=== PATIENT | female | born 1955 | race African-American/Black ===

== ENCOUNTER 2020-12-01 01:05 | Day surgery (SDC) | payer BC, SELFPAY ==
[2020-11-29 12:46] VITALS: BMI 26.5
--- NOTE | 2020-12-01 10:43 | P.PNAN_ITS ---
Anes - Initial Pre Proc Eval Procedure: Operation Date: 12/01/20 12:00 Proposed Procedures p Excisional Biopsy Right Axillary Mass - Rochelle Mccullough MD Date/Time: 12/01/20 10:43 Surgeon: Rochelle Mccullough MD Pre Op Diagnosis: Right Axillary Mass 2x2 Patient Data Age: 65 Gender: F Height: 1.57 m Weight: 65.9 kg Allergies Allergy/AdvReac Type Severity Reaction Status Date / Time penicillin G Allergy Severe Unconscious Verified 11/29/20 13:02 [From Bicillin L-A] Home Medications Medication Instructions Recorded Confirmed Type carvedilol 6.25 mg tablet 6.25 mg PO Q12H #180 tablet 10/28/20 11/29/20 Rx Patient hx anesthesia problems: none Family hx anesthesia problems: none Results Review: All pre-operative results and documents have been reviewed as part of the pre-operative evaluation. PENDING SALE TO [facility] Family History Family History Father Family history of lung cancer Patient's father is Mother Patient's mother is Unknown Hypertension Social History Social History Smoking status: Never smoker Second hand tobacco smoke exposure: No Alcohol intake: current Living arrangements: with family Spiritual care concerns: No Anes - Eval Final PreProcedure Day of Procedure 12/01/20 10:43 Patient weight: overweight Heart: regular rate and rhythm Lungs: clear to auscultation Airway: Mallampati scale class II Neurological: alert and oriented Last oral intake: >/= 8 hours ASA classification: II Emergent: no Anesthetic plan: proceed Anesthesia type and monitoring: general GIVS and standard monitoring Results Review: All pre-operative results and documents have been reviewed as part of the pre-operative evaluation. Informed Consent: The patient's anesthetic plan and its attendant risks and benefits were discussed with the patient/family/POA. Questions were solicited and answers provided to the satisfaction of the patient/family/POA.
--- NOTE | 2020-12-01 10:48 | WPDHPUPDATE1 ---
History and Physical Update Update Date/Time: 12/01/20 10:48 History and Physical has been reviewed, including an updated exam of the patient. There are NO changes in the patient's condition. Risks, benefits, and alternatives have been discussed and questions answered. Patient agrees to proceed with procedure.
[2020-12-01 10:55] VITALS: BP 147/88; PULSE 75; RESP 18; TEMP 36.4; O2SAT 100; BMI 27.3
[2020-12-01] MEDS: LACTATED RINGERS 1,000 ML 30 ML IV CONT (11:17)
[2020-12-01] MEDS: LIDO 1%/EPINEPHRINE 1:100,000 50 ML VIAL 9 ML INFILTRATE (12:09)
[2020-12-01] MEDS: ceFAZolin 2 GM/D5W 50 ML 2 GM/50 ML BAG IVPB (12:09)
[2020-12-01 12:43] VITALS: BP 114/69; PULSE 64; RESP 10; O2SAT 94
--- NOTE | 2020-12-01 12:53 | W.PM.PROC2 ---
Procedure Note - Detailed Date of Procedure 12/01/20 Pre-op Diagnosis Right Axillary Mass 2x2 Post-op Diagnosis other (cystic mass) Procedure Performed excisional biopsy right axillary cystic mass Surgeon Rochelle Mccullough MD Anesthesia MAC and local Indications 65-year-old female presenting with right axillary mass that has been slowly enlarging. Patient reports that the area has become more tender Findings right axillary cystic mass Description of Procedure The patient was taken to the operating room and placed in the supine position. After adequate induction of MAC anesthesia the patient was prepped and draped in the normal sterile fashion. A time-out was then done to verify the patient's identity, as as the procedure being performed. I began by localizing the area in the right axilla. Once the area was completely anesthetized, I made an incision over the mass. This was carried down through the dermis into the subcutaneous tissue. The mass was noted to be a cystic structure. Upon dissecting around the mass, a small perforation was noted. The mass was noted to contain sebaceous material. I was able to excise the mass in full and it will be sent to pathology for further review. Hemostasis was noted in the cavity. I then closed the subcutaneous tissue with 3-0 Vicryl suture. The skin was closed with 4-0 Monocryl subcuticular suture. Dermabond was then placed on the wound. The patient tolerated the procedure well and was alert and awake in the operating room postoperatively. She will be sent to the recovery room in stable condition. Estimated Blood Loss 5 Drains No Packing No Pathology yes Complications No immediate complications Condition stable Disposition PACU
[2020-12-01 13:10] VITALS: BP 120/65; PULSE 58; RESP 16; O2SAT 98
[2020-12-01 13:40] VITALS: BP 136/71; PULSE 55; RESP 16
== END 2020-12-01 14:05 | disposition home or self-care (01) ==
PROVIDERS: PCP Internal Medicine; Visit Provider Surgery
PROC: (CPT 11404; principal; 2020-12-01 12:00)
DX: L72.0 Epidermal cyst (principal)
CPT/HCPCS: 11404; 12032; 88304; J0690; J1100; J2250; J2405; J2704; J3010; J7120

== ENCOUNTER 2023-02-13 13:41 | Outpatient (CLI) | payer MEDICARE, SELFPAY ==
--- NOTE | 2023-02-13 14:29 | ECG_ITS ---
Measurements Intervals [place] Rate: 66 P: 50 WA: 187 QRS: 0 QRSD: 94 T: 30 QT: 376 QTc: 397 Interpretive Statements SINUS RHYTHM VOLTAGE CRITERIA FOR LVH BASELINE ARTIFACT- I, II, III, AVR, AVL, AVF BORDERLINE ECG NO PREVIOUS ECG AVAILABLE FOR COMPARISON Electronically Signed On 02-13-2023 15:06:36 CLARIFIER OPERATOR by Franco Mesa D.O.
[2023-02-13 15:39] LABS: Basophils Absolute Auto 0.1 K/mm3 (0.0-0.1); Basophils Percent Auto 1.2 % (0.2-1.2); Eosinophils Absolute Auto 0.4 K/mm3 (0-0.3); Eosinophils Percent Auto 4.6 % (0-4.4); Hematocrit 41.7 % (37.0-47.0); Hemoglobin 13.2 g/dL (12.0-15.0); Immature Granulocyte Absolute 0.02 K/mm3 (0.00-0.031); Immature Granulocyte Percent A 0.2 % (0-0.5); Lymphocytes Absolute Auto 3.86 K/mm3 (0.9-3.2); Lymphocytes Percent Auto 40.7 % (18.3-44.2); Mean Corpuscular HGB Conc 31.7 g/dl (32-36); Mean Corpuscular Hemoglobin 28.7 pg (26-34); Mean Corpuscular Volume 90.7 fl (80-100); Mean Platelet Volume 10.5 fl (7.4-10.4); Monocytes Absolute Auto 0.6 K/mm3 (0.1-0.6); Monocytes Percent Auto 5.8 % (2.6-8.5); Neutrophils Absolute Auto 4.5 K/mm3 (1.3-6.7); Neutrophils Percent Auto 47.5 % (45.5-73.1); Platelet Count Result 358 k/mm3 (150-375); Red Cell Distribution Width 13.6 % (11.5-14.5); White Blood Count 9.5 K/mm3 (4.5-10.0)
[2023-02-13 15:47] LABS: Albumin Level 4.8 g/dL (3.5-5.1); Anion Gap 11 mmol/L (8-16); Blood Urea Nitrogen 15 mg/dL (7-17); Carbon Dioxide 27 mmol/L (22-30); Chloride 102 mmol/L (98-107); Estimated Glomerular Filt Rate > 60; Glucose 86 mg/dL (65-110); Potassium 3.8 mmol/L (3.4-5.0); Sodium 140 mmol/L (137-145)
[2023-02-13 15:48] LABS: Urine Cotinine NEGATIVE
[2023-02-13 16:21] LABS: Hemoglobin A1C 4.6 % (<5.7)
== END 2023-02-13 13:42 | disposition home or self-care (01) ==
LOC: ANHSURGERY 13:44
PROVIDERS: PCP Internal Medicine; Visit Provider Orthopaedic Surgery
DX: M17.11 Unilateral primary osteoarthritis, right knee (principal); Z01.818 Encounter for other preprocedural examination
CPT/HCPCS: 80048; 80307; 82040; 83036; 85025; 87081; 93005

== ENCOUNTER 2023-03-05 01:29 | Day surgery (SDC) | payer MEDICARE, SELFPAY ==
--- NOTE | 2023-02-13 13:48 | PC.NURSE ---
Addendum entered by Kristen Pruett RN 02/14/23 14:00: PT INFORMED TO TAKE FELODIPINE AM OF SURGERY - UNDERSTANDING VOICED Addendum entered by Kristen Pruett RN 02/14/23 11:54: PT INFORMED NOT TO TAKE LOTREL AM OF SURGERY - UNDERSTANDING VOICED Original Note: PRE-OP INSTRUCTIONS, PLEASE READ CAREFULLY Report to the Outpatient Waiting Room, entrance under the green pavilion located off [facility], at time _0600_ on date _03/05/23_. Planned Procedure Time: _0730_. PACK A SMALL OVERNIGHT BAG AND LEAVE IT IN THE CAR ALONG WITH YOUR WALKER Time changes happen often and if your time is changed the preop area will call you the afternoon before. - You and your visitor will be asked to self-screen and do not enter if you have any COVID symptoms. - A mask is optional within the hospital at this time. -VISITING HOURS 8AM-8PM Patients may have clear liquids (water, carbonated beverages, clear teas, apple juice) until 3 hours prior to surgery (0430 AM) with a maximum of 20 ounces. - No food from midnight until time of surgery Take the following medications with a SIP of water the morning of surgery: _LOTREL_ DO NOT STOP ANY OF YOUR OTHER PRESCRIPTION MEDICATIONS PRIOR TO SURGERY ?EXCEPT THE FOLLOWING Medications to discontinue per DR. STEEL - _ALEVE, COD LIVER OIL 7 DAYS PRIOR TO SURGERY, Date to take last dose 02/25/23 Medications to discontinue per ANESTHESIA - _MULTIVITAMIN 3 DAYS PRIOR TO SURGERY, Date to take last dose 03/01/23_ Please no make-up, nail yoruba, hairspray, perfume, deodorant, or body powder the day of surgery. No jewelry (including any body piercings) or valuables the day of surgery, leave them at home. Please take a shower or bath the night before, or the morning of, surgery with an antibacterial soap. Wear comfortable, loose fitting clothing. - Jewelry must be removed prior to entering the operating room. Rings and piercings that are not removed may be cut off. - The hospital will not accept responsibility for valuables. - Please leave all valuables, including medications, at home the day of surgery. If you are going home after surgery, a licensed explosives truck driver must drive you home. - NO public transportation without another adult if you receive anesthesia. - We recommend that an adult stay with you for 24 hours following discharge. - We also recommend that you do not drive, make important decision, drink alcoholic beverages, or take any drugs that were not prescribed by your health care provider for at least 24 hours after your discharge time. Follow any additional instructions given to you from your surgeon. TOTAL JOINT CLASS 02/14/23 @ [address] [place] [address] ENTRANCE 2, LOWER LEVEL If you or anyone in your household have experienced Covid symptoms in the past week, please notify your surgeon or the nurse liaison at the phone number below for possible testing. Instructions given to _PATIENT_and asked if any additional questions and then verbalized understanding. Patient advised to call surgeon office or pre surgery nurse liaison [phone] if any additional questions.
[2023-02-13 14:13] VITALS: BP 154/86; PULSE 80; RESP 18; TEMP 36.7; O2SAT 99; BMI 26.9
--- NOTE | 2023-02-14 13:59 | PC.NURSE ---
PT CALLED IN WITH CHANGE OF BP MED - MED LIST UP DATED AND PRE-OP INSTRUCTIONS GIVEN REGARDING BP MED CHANGE
--- NOTE | 2023-03-02 08:12 | PM.IMHP ---
H&P: HPI History of Present Illness Date/Time: 03/02/23 08:12 Chief Complaint: Right knee DJD Narrative: 67-year-old female who presents today for a right total arthroplasty. Patient has severe medial compartment osteoarthritis right knee. She has been treating this nonsurgically for last Five years. She had cortisone injection in August of last year which helped for about 2 months. She has been taking [id number] anti-inflammatories. patient feels at this point her pain is significant enough on a daily basis and it is affecting her daily lifestyle that she would like to proceed with total knee arthroplasty at this point. Review of Systems Review of Systems: All systems reviewed & are unremarkable except as noted in HPI and below PMFSH Surgical History Surgical History H/O excision of mass 12/01/20 excisional biopsy right axillary cystic mass Family History Family History Father Family history of lung cancer Patient's father is Mother Patient's mother is Unknown Hypertension Social History Social History Smoking status: Never smoker Second hand tobacco smoke exposure: No Additional smoking assessment comments: PT DENIES ALL FORMS OF TOBACCO USE Alcohol intake: current Drinks per week: 3 Substance use: never Substance use type: does not use Lack of Transportation: No Lack of Food: Never True Current Housing: I Have Housing Concerned About Future Housing: No Difficulty Paying Gas/Electric Bills: No Difficulty Paying for Meds: No Currently Unemployed: No Education: Bachelor's Degree Difficulty w/ Childcare or Family Care: No Living arrangements: with family Spiritual care concerns: No Meds Home Medications and Allergies Home Medications Medication Instructions Recorded Confirmed Type multivitamin 1 tablet PO DAILY 12/21/21 02/13/23 History acetaminophen 500 mg tablet 1,000 mg PO Q6H PRN Pain 02/13/23 02/13/23 History cod liver oil 1 cap DAILY 02/13/23 02/13/23 History naproxen sodium 220 mg tablet 220 mg PO BID PRN Pain 02/13/23 02/13/23 History (Aleve) soy isoflavone-black cohosh 1 cap PO DAILY 02/13/23 02/13/23 History root-magnolia bark 155 mg capsule (Estroven) felodipine 10 mg tablet,extended 10 mg PO DAILY 02/14/23 02/14/23 History release 24 hr Allergies Allergy/AdvReac Type Severity Reaction Status Date / Time penicillin G Allergy Severe Unconscious Verified 02/13/23 14:01 [From Bicillin L-A] Exam Narrative: 67-year-old female alert pleasant. She is 5 ft 1 and 153 lb. Range of motion right knee is from 0-125 degrees. Moderate effusion. Normal stability in the knee. Hip range of motion is full without discomfort negative Stinchfield maneuver. Normal quad strength. Moderate tenderness over the medial joint line to palpation. Mild patellofemoral grind. 2+ dorsalis pedis and absent posterior tibial pulse. Normal sensation. No edema in lower extremities. Resp: Auscultation: clear to auscultation bilaterally Cardio: Rate: regular rate Rhythm: regular rhythm Assessment and Plan Assessment and plan (1) Right knee DJD: Code(s): M17.11 - Unilateral primary osteoarthritis, right knee Status: Acute Plan 67-year-old female who has severe medial compartment osteoarthritis the right knee with continued symptoms. She is ready to proceed with total knee arthroplasty at this point. Surgical procedure as well as the risks and complications were discussed in detail all questions were answered and we will proceed. Patient will avoid any anti-inflammatories 1 week prior surgery. She will see her primary care doctor for pre-surgical clearance. Her nasal swab was negative. Chem panel was all within
[2023-03-05] VITALS (15 sets, daily range): BP systolic 109–150; BP diastolic 58–80; PULSE 74–100; RESP 12–20; TEMP 36.4–37.3; O2SAT 94–100
--- NOTE | ~2023-03-05 | XR_ITS ---
EXAMINATION: [id number] DATE: 03/05/2023 11:56 INDICATION: Postoperative evaluation following right total knee arthroplasty. TECHNIQUE: Anteroposterior and lateral views of the right knee were obtained. COMPARISON: None. FINDINGS: Right total knee arthroplasty with patellar resurfacing appears well seated and in near anatomic alig nment. No fractures identified. Expected postoperative subcutaneous and intra-articular gas. IMPRESSION: 1. Right total knee arthroplasty, negative for postoperative purposes. Reviewed, dictated and finalized at location A. [facility]
[2023-03-05] MEDS: ACETAMINOPHEN 500 MG TABLET 1000 MG PO (06:23)
[2023-03-05] MEDS: VANCOMYCIN 1,000 MG/NS 250 ML BAG 250 MG IVPB (06:40)
[2023-03-05] MEDS: LACTATED RINGERS 1,000 ML 30 ML IV CONT (06:49)
[2023-03-05] MEDS: TRANEXAMIC ACID 1,000MG/ISO100 1,000 MG/100 ML BAG 200 MG IVPB (07:05)
--- NOTE | 2023-03-05 07:09 | WPDHPUPDATE1 ---
History and Physical Update Update Date/Time: 03/05/23 07:09 History and Physical has been reviewed, including an updated exam of the patient. There are NO changes in the patient's condition. Risks, benefits, and alternatives have been discussed and questions answered. Patient agrees to proceed with procedure.
--- NOTE | 2023-03-05 07:15 | WPDANESEPPF ---
Anes - Initial Pre Proc Eval Procedure: Operation Date: 03/05/23 07:30 Proposed Procedures p Right Total Knee Arthroplasty - Patrick Jerome MD Date/Time: 03/05/23 07:15 Surgeon: Patrick Jerome MD Pre Op Diagnosis: OA right knee Patient Data Age: 67 Gender: F Height: 1.62 m Weight: 70.7 kg Last Vital Signs Temp 97.6 F 03/05/23 06:51 Pulse 74 03/05/23 06:51 Resp 16 03/05/23 06:51 BP 150/73 H 03/05/23 06:51 Pulse Ox 100 03/05/23 06:51 O2 Del Method Room Air 03/05/23 06:51 Allergies Allergy/AdvReac Type Severity Reaction Status Date / Time penicillin G Allergy Severe Unconscious Verified 03/05/23 06:21 [From Bicillin L-A] Home Medications Medication Instructions Recorded Confirmed Type multivitamin 1 tablet PO DAILY 12/21/21 03/05/23 History acetaminophen 500 mg tablet 1,000 mg PO Q6H PRN Pain 02/13/23 03/05/23 History cod liver oil 1 cap DAILY 02/13/23 03/05/23 History naproxen sodium 220 mg tablet 220 mg PO BID PRN Pain 02/13/23 03/05/23 History (Aleve) soy isoflavone-black cohosh 1 cap PO DAILY 02/13/23 03/05/23 History root-magnolia bark 155 mg capsule (Estroven) felodipine 10 mg tablet,extended 10 mg PO DAILY 02/14/23 03/05/23 History release 24 hr Patient hx anesthesia problems: none Family hx anesthesia problems: none Results Review: All pre-operative results and documents have been reviewed as part of the pre-operative evaluation. [facility] Surgical History Surgical History H/O excision of mass 12/01/20 excisional biopsy right axillary cystic mass Family History Family History Father Family history of lung cancer Patient's father is Mother Patient's mother is Unknown Hypertension Social History Social History Smoking status: Never smoker Second hand tobacco smoke exposure: No Additional smoking assessment comments: PT DENIES ALL FORMS OF TOBACCO USE Alcohol intake: current Drinks per week: 3 Substance use: never Substance use type: does not use Lack of Transportation: No Lack of Food: Never True Current Housing: I Have Housing Concerned About Future Housing: No Difficulty Paying Gas/Electric Bills: No Difficulty Paying for Meds: No Currently Unemployed: No Education: Bachelor's Degree Difficulty w/ Childcare or Family Care: No Living arrangements: with family Spiritual care concerns: No Anes - Eval Final PreProcedure Day of Procedure 03/05/23 07:15 Patient weight: normal Heart: regular rate and rhythm Lungs: clear to auscultation Airway: Mallampati scale class II Neurological: alert and oriented Last oral intake: >/= 8 hours ASA classification: II Emergent: no Anesthetic plan: proceed Anesthesia type and monitoring: general ETT and standard monitoring Results Review: All pre-operative results and documents have been reviewed as part of the pre-operative evaluation. Informed Consent: The patient's anesthetic plan and its attendant risks and benefits were discussed with the patient/family/POA. Questions were solicited and answers provided to the satisfaction of the patient/family/POA.
[2023-03-05] MEDS: ceFAZolin SODIUM 1 GM VIAL 3 GM (07:30)
[2023-03-05] MEDS: ceFAZolin 2 GM/D5W 50 ML 2 GM/50 ML BAG IVPB (07:30)
[2023-03-05] MEDS: GENTAMICIN BONE CEMENT REFOBACIN 2 EACH TOPICAL (09:49)
[2023-03-05] MEDS: TRANEXAMIC ACID 1,000 MG/10 ML AMPUL 1000 MG IV PUSH (10:03)
[2023-03-05] MEDS: ceFAZolin SODIUM 1 GM VIAL 2 GM IV PUSH (10:03)
[2023-03-05] MEDS: KETOROLAC 15 MG/ML VIAL (*BKC) IV PUSH ×2 (10:03→18:09)
--- NOTE | 2023-03-05 10:40 | SUR.OPER ---
given DEPUY CMW 2 GENTAMICIN BONE CEMENT 2 (20G) 10:40 TO STERILE FIELD (DOES NOT SCAN FOR MAR).
--- NOTE | 2023-03-05 12:11 | W.PM.PROC2 ---
Procedure Note - Detailed Date of Procedure 03/05/23 Pre-op Diagnosis OA right knee Post-op Diagnosis Same Procedure Performed Right total knee arthroplasty Surgeon Patrick Jerome MD Anesthesia General Description of Procedure Patient was brought to the operating room and general anesthesia was administered. She received 2 g of Ancef weight based vancomycin 1 g of tranexamic acid preoperatively the right knee was prepped draped usual fashion. Was exsanguinated tourniquet elevated to 250 mmHg. A 7 in longitudinal midline incision was used and a vastus medialis splitting approach utilized splitting the vastus medialis at the level of the superior pole of patella. Infrapatellar and suprapatellar fat pads were excised the quadriceps synovectomy carried out. The patella had only mild chondromalacia central medially otherwise had normal thickness of articular cartilage. Small osteophytes were trimmed. I thought it was most appropriate for non resurfacing. A guide dewey was inserted on femoral canal after aspiration of canal contents using the 5 degree valgus cutting bushing 9 mm of bone removed the distal femur. Next the tibial plateau was cut making a skim cut off the medial tibial plateau. This was made perpendicular to the axis of the tibia. Meniscal remnants were excised the PCL recessed. Flexion gap was a snug 8 medially and 12 laterally. The sizing guide was applied the distal femur set at 4? of external rotation which matched [place] line. AP and chamfer cuts were made through the size 60 cutting block and unfortunately the 60 was a little too wide. It did rest in the anterior cortex nicely. On trialing we could see that were still too tight in flexion to accept the size 10 CR poly and tray in flexion. Additional 2 mm of bone removed from the tibial plateau. Tibia was sized to a size 63 vanguard placed at proper rotation and punched. The 10 was a little bit loose in flexion the 11 seemed appropriate. The knee came out to full extension with negative bounce with 1 mm medial opening 3 lateral opening. We had removed the medial tibial osteophyte but did not strip any medial capsule from the tibia. I felt that the 60 was a little bit too wide and comfortable with the rotation of the femur we downsized to the size 57.5 femur by flexing at about 2 or 3? and pinning it into this position AP and chamfer cuts were revised and the 57.5 fit nicely. Posterior femoral osteophytes removed this time on trialing again with the 11 knee came out to full extension 1 mm medial 3 lateral opening appropriate stability to anterior roofing applicator all positions at 90? opening up 1-2 laterally and 1 medially. [place] flexion was to 1 35. Patellar tracking seemed appropriate. Lug holes were drilled in the femur. We had put the tourniquet down at 90 minutes it was real of a at this time and step drill was used to make perforations in the distal femur and tibial plateau the bony surfaces thoroughly irrigated and dried. Two batches with gentamicin cement were used since we were out of the plane cement and we applied the cement to the 63 tibial component the 57.5 femoral component CR and applied the cement to the tibial plateau pressurized tibial component fully seated applied to the femur femoral component fully seated the knee brought into extension with a 5 and 112 insert for cement pressurization tourniquet released total tourniquet time 107 minutes. After cement hardening excess cement was sought for removed and hemostasis was achieved. We trialed and placed the 11 without difficulty. Range of motion stability patellar tracking seemed normal. Local anesthetic cocktail was injected and we proceeded the start close the arthrotomy in after placing a few stitches I checked the knee through range of motion and unfortunately the superior apex of the patella was catching on the lip of the trochlear rim of the femoral component coming from deep flexion through 120? of flexi
--- NOTE | 2023-03-05 13:05 | ADMGEN ---
This patient, Mira Prather, was admitted to 2 Medical Room 248-. Patient/family oriented to hospital policies and general routines including ID bracelet, bed and alarms, visiting hours, pain management, procedures, bathroom and other care routines, personal items, smoking policy, room service/diet, and visiting hours. Information on how to activate the Rapid Response Team has been discussed. Patient/Family are encouraged to report perceived risks to care and to ask questions if they do not understand what they are told or what they should do.
[2023-03-05] MEDS: SODIUM CHLORIDE 0.9% IV 1,000 ML 125 ML IV CONT (14:05)
[2023-03-05] MEDS: oxyCODONE HCL (*CRX) 5 MG TAB IR PO ×3 (14:05→21:04)
--- NOTE | 2023-03-05 14:05 | WPDCN ---
Assessment and Plan Assessment and plan (1) Arthritis of right knee: Code(s): M17.11 - Unilateral primary osteoarthritis, right knee Status: Acute Assessment and Plan: Postoperative day 0 status post right total knee arthroplasty. Wound care, pain control, and DVT prophylaxis deferred to Dr. Jerome. Check baseline labs in a.m. (2) Hypertension: Code(s): I10 - Essential (primary) hypertension Status: Acute Assessment and Plan: Blood pressures were reviewed and they have been stable postoperatively. Resume felodipine 10 mg daily and continue to monitor closely. Plan Thank you for allowing us to participate in this patient's care. Please do not hesitate to contact us with any questions. HPI Data of Consult Date/Time: 03/05/23 14:05 Requesting Physician: Patrick Jerome MD Consult Narrative Reason for consult: Medical management. Narrative: This is a very pleasant 67-year-old female with hypertension and osteoarthritis whom the hospitalist service has been consulted for help managing her medical conditions postoperatively. She has had longstanding pain in the right knee which is not been amenable to conservative outpatient treatment in the she elected for replacement. Her surgery was performed under general anesthesia with no immediate complications documented. Postoperatively she has had some nausea but is otherwise doing okay. Her pain is pretty well controlled. She denies postoperative fever, chills, sweats, chest pain, shortness the of breath, and vomiting. She also denies paresthesias, skin color, and temperature changes distal to the surgical site. Review of Systems Review of Systems: Twelve systems were reviewed. No recent cold or flu symptoms. No history of venous thromboembolism. Hypertension is well controlled on her medications. Except as documented, all other systems were reviewed and are negative. [facility] Past Medical History Medical History Hyperlipidemia Hypertension Osteoarthritis Surgical History Surgical History History of arthroplasty of right knee (03/05/23) History of excision of epidermal inclusion cyst (12/01/20) Right axilla. History of hysterectomy Family History Family History Father Family history of lung cancer Patient's father is Mother Patient's mother is Unknown Hypertension Social History Social History Social History: Surrogate medical decision maker: Guy Prather, spouse. Code status: Full code. Smoking status: Never smoker Second hand tobacco smoke exposure: No Alcohol intake: current Drinks per week: 1 Substance use: never Substance use type: does not use Do You Feel Safe in your Home?: Yes Lack of Transportation: No Lack of Food: Never True Current Housing: I Have Housing Concerned About Future Housing: No Difficulty Paying Gas/Electric Bills: No Difficulty Paying for Meds: No Currently Unemployed: No Education: Bachelor's Degree Difficulty w/ Childcare or Family Care: No Living arrangements: with family Spiritual care concerns: No Meds Home Medications and Allergies Home Medications Medication Instructions Recorded Confirmed Type multivitamin 1 tablet PO DAILY 12/21/21 03/05/23 History acetaminophen 500 mg tablet 1,000 mg PO Q6H PRN Pain 02/13/23 03/05/23 History cod liver oil 1 cap DAILY 02/13/23 03/05/23 History naproxen sodium 220 mg tablet 220 mg PO BID PRN Pain 02/13/23 03/05/23 History (Aleve) soy isoflavone-black cohosh 1 cap PO DAILY 02/13/23 03/05/23 History root-magnolia bark 155 mg capsule (Estroven) felodipine 10 mg tablet,extended 10 mg PO DAILY 02/14/23 03/05/23 History
[2023-03-05] MEDS: ceFAZolin 1 GM/NS 50 ML 1 GM/50 ML BAG IVPB (15:25)
[2023-03-05] MEDS: ACETAMINOPHEN 325 MG TABLET 650 MG PO ×2 (17:07→21:04)
[2023-03-05] MEDS: VANCOMYCIN 1,000 MG/NS 250 ML 1,000 MG/250 ML BAG 250 MG IVPB (18:10)
[2023-03-06 00:51] VITALS: BP 105/54; PULSE 82; RESP 20; TEMP 36.9; O2SAT 98
[2023-03-06] MEDS: KETOROLAC 15 MG/ML VIAL (*BKC) IV PUSH (00:53)
[2023-03-06] MEDS: ceFAZolin 1 GM/NS 50 ML 1 GM/50 ML BAG IVPB ×2 (00:53→07:43)
[2023-03-06] MEDS: ACETAMINOPHEN 325 MG TABLET 650 MG PO ×3 (00:58→08:06)
[2023-03-06] MEDS: oxyCODONE HCL (*CRX) 5 MG TAB IR PO ×3 (01:00→09:34)
[2023-03-06 05:10] VITALS: BP 112/66; PULSE 73; RESP 18; TEMP 36.5; O2SAT 95
[2023-03-06 05:51] LABS: Basophils Absolute Auto 0.1 K/mm3 (0.0-0.1); Basophils Percent Auto 0.4 % (0.2-1.2); Eosinophils Percent Auto 0.1 % (0-4.4); Hematocrit 36.4 % (37.0-47.0); Hemoglobin 11.5 g/dL (12.0-15.0); Immature Granulocyte Absolute 0.06 K/mm3 (0.00-0.031); Immature Granulocyte Percent A 0.4 % (0-0.5); Lymphocytes Absolute Auto 3.49 K/mm3 (0.9-3.2); Lymphocytes Percent Auto 25.9 % (18.3-44.2); Mean Corpuscular HGB Conc 31.6 g/dl (32-36); Mean Corpuscular Hemoglobin 28.5 pg (26-34); Mean Corpuscular Volume 90.3 fl (80-100); Monocytes Absolute Auto 1.1 K/mm3 (0.1-0.6); Monocytes Percent Auto 8.1 % (2.6-8.5); Neutrophils Absolute Auto 8.8 K/mm3 (1.3-6.7); Neutrophils Percent Auto 65.1 % (45.5-73.1); Platelet Count Result 258 k/mm3 (150-375); Red Blood Count 4.03 M/mm3 (4.2-5.4); Red Cell Distribution Width 13.6 % (11.5-14.5); White Blood Count 13.5 K/mm3 (4.5-10.0)
[2023-03-06 06:00] LABS: Anion Gap 8 mmol/L (8-16); Blood Urea Nitrogen 7 mg/dL (7-17); Carbon Dioxide 27 mmol/L (22-30); Chloride 105 mmol/L (98-107); Estimated CRCL calculation 76 ml/min; Estimated Glomerular Filt Rate > 60; Glucose 90 mg/dL (65-110); Potassium 3.3 mmol/L (3.4-5.0); Sodium 140 mmol/L (137-145)
[2023-03-06] MEDS: VANCOMYCIN 1,000 MG/NS 250 ML 1,000 MG/250 ML BAG 250 MG IVPB (06:06)
--- NOTE | 2023-03-06 07:21 | PM.PNORT ---
Progress Note: A&P Assessment and Plan (1) History of total right knee replacement: Code(s): Z96.651 - Presence of right artificial knee joint Status: Acute Plan Patient is ready for discharge home today see discharge plan and instructions she voiced understanding and agrees with the above plan. Subjective Subjective Date/Time Seen: 03/06/23 07:21 Interval history: And doing very well postop day 1 status post right total knee arthroplasty. Today we went over postop instructions at bedside as follows. DAISY STEEL M.D [facility], [place] [id number] [place] [address] POST-OPERATIVE DISCHARGE INSTRUCTIONS TOTAL KNEE ARTHROPLASTY 1. When resting, do not rest in the chair.When resting, lie on your back, with back flat on the couch or bed, with leg elevated above heart to minimize swelling. You may put a pillow under your head. . Significant swelling could indicate a blood clot and if this occurs call the office (or go to the ER) to have a venous ultrasound. Therefore, do not rest in a chair. 2. At least five times a day spend several minutes stretching your knee into flexion while sitting in the chair and also stretching your knee out straight The abilities to bend your knee fulling and straighten your knee fully are two most important knee functions to focus on during your recovery. 3. It is ok to sit in chair to eat, use the toilet and receive a guest and to do your stretching exercises, but, sitting in a chair will cause your leg to swell. Therefore, avoid additional time sitting in the chair. and don't rest in the chair. 4. Wound Care: Nursing will give you an additional Mepilex dressing at the time of discharge. Patient to remove the dressing and apply a new Mepilex dressing at home 7 days after surgery and leave the dressing on until seen in office. 5. May shower with a Mepilex dressing in place.The water will run off the dressing. 6. Unless you are told otherwise, you may put full weight on your operated leg. Use a walker for balance and practice walking as normally as you can, ideally for a few minutes every hour while you are awake. 7. I would advise against putting ice packs on your knee incision. Ice constricts blood flow which can impar healing of the knee incision. IMPORTANT: Remember not to sit in the chair for more than 30 minutes at a time. As a rule, during the first 14 days after surgery, only sit in the chair to work on the chair knee bending stretch exercise, for meals or for use of the restroom. Sitting in the chair promotes significant swelling in the knee and leg which will make your knee stiff and more painful and which simulates having a blood clot in the veins of the leg. If this type of significant diffuse swelling occurs, an ultrasound at the hospital will be necessary to rule out a blood clot. Be up walking around with the walker for a few minutes every hour while awake and then rest laying on your back on the couch or in bed with your leg elevated on cushions or pillows. Do not rest in the chair. The patient will be discharged home today she has no complaints doing well in therapy eating and slept well. States her pain is well controlled she is ready for discharge to home. Review of Systems Review of Systems: Ten point review of systems otherwise negative Exam Narrative: Vital signs stable afebrile neurovascularly intact wound clean and dry calves benign alert oriented x3. Normal mood and affect. Ambulating well with a walker. No significant postop complaints noted looks comfortable this morning. Ready for discharge home. Objective Data Vital Signs Vital Signs: Vital Signs - 24 hr 03/05/23 11:43 03/05/23 11:45 03/05/23 12:00 Temperature 36.6 C Pulse Rate 88 100 97 Respiratory Rate 14 12 16 Blood Pressure 112/67 123/72 109/67 Pulse Oximetry 98 94 96 Oxygen Delivery Simple Face Mask Room Air Na
--- NOTE | 2023-03-06 07:31 | PM.DS ---
DS: Admitting Diagnosis Discharge Date March 06, 2023 Admitting Diagnosis Advanced primary osteoarthritis right knee Discharge diagnosis same status post right total knee arthroplasty DS: Summary Hospital Course Hospital Course: The patient was admitted overnight after undergoing a right total knee arthroplasty on 03/05 2023. Postop day 1 the patient was doing well vital signs are stable she was afebrile neurovascular intact wound clean and dry calves benign alert oriented x3 normal mood and affect. Pain was well controlled she was able to get up and ambulate with a walker no postoperative complications or problems were noted. She was in good condition deemed stable for discharge to home. We went over the discharge instructions in detail she was advised to keep her leg elevated as much as possible on her back with her leg above her heart propped up except to get up every hour to ambulate and do her physical therapy exercises 4 to 5 times a day. She is not to sit in a chair for more than 30 minutes at a time except for meals other than that she should have her leg propped up on her back. She can resume her home medication. She will have outpatient physical therapy at our office for total knee protocol and do her exercises on her own daily. She can shower with the dressing in place removed the dressing in 1 week change it and follow-up with Dr. Prieto in 2 weeks. She will call the office immediately for any further problems difficulties or questions. Time Spent with Patient Time attestation: Total time spent providing and/or coordinating discharge services: Exam Narrative: Vital signs stable afebrile neurovascular intact wound clean and dry calves benign DS: Data Data Completed and Pending Labs on day of discharge: Labs from last 24 hours 03/06/23 03/05/23 05:24 06:36 WBC 13.5 H RBC 4.03 L Hgb 11.5 L Hct 36.4 L MCV 90.3 MCH 28.5 MCHC 31.6 L RDW 13.6 Plt Count 258 MPV 10.0 Immature Gran % (Auto) 0.4 Neut % (Auto) 65.1 Lymph % (Auto) 25.9 [place] % (Auto) 8.1 Eos % (Auto) 0.1 Baso % (Auto) 0.4 Lymph # (Auto) 3.49 H [place] # (Auto) 1.1 H Eos # (Auto) 0.0 Baso # (Auto) 0.1 Abs Immat Gran (auto) 0.06 H Absolute Neuts (auto) 8.8 H Absolute Nucleated RBC 0.0 Nucleated RBC % 0.0 Sodium 140 Potassium 3.3 L Chloride 105 Carbon Dioxide 27 Anion Gap 8 BUN 7 D Creatinine 0.60 L Estim Creat Clear Calc 76 Estimated GFR > 60 Glucose 90 Calcium 9.0 Magnesium 2.0 Antibody Screen Negative Procedures/Treatments: Right total knee arthroplasty Discharge Plan Discharge Patient Disposition: Home, Self-Care Discharge Instructions: DAISY STEEL M.D [facility], [place] [address] [address] POST-OPERATIVE DISCHARGE INSTRUCTIONS TOTAL KNEE ARTHROPLASTY 1. When resting, do not rest in the chair.When resting, lie on your back, with back flat on the couch or bed, with leg elevated above heart to minimize swelling. You may put a pillow under your head. . Significant swelling could indicate a blood clot and if this occurs call the office (or go to the ER) to have a venous ultrasound. Therefore, do not rest in a chair. 2. At least five times a day spend several minutes stretching your knee into flexion while sitting in the chair and also stretching your knee out straight The abilities to bend your knee fulling and straighten your knee fully are two most important knee functions to focus on during your recovery. 3. It is ok to sit in chair to eat, use the toilet and receive a guest and to do your stretching exercises, but, sitting in a chair will cause your leg to swell. Therefore, avoid additional time sitting in the chair. and don't rest in the chair. 4. Wound Care: Nursing will give you an additional Mepilex dressing at the time of discharge. Patient to remove the dressing and apply
[2023-03-06] MEDS: FELODIPINE 5 MG TAB CR 10 MG PO (08:05)
[2023-03-06] MEDS: CEFDINIR 300 MG CAPSULE PO (08:05)
[2023-03-06] MEDS: SENNA/DOCUSATE SODIUM TABLET 2 TAB PO (08:05)
[2023-03-06] MEDS: APIXABAN 2.5 MG TABLET PO (08:06)
[2023-03-06] MEDS: POTASSIUM CHLORIDE 20 MEQ ER TABLET PO (08:06)
[2023-03-06] MEDS: CELECOXIB 200 MG CAPSULE PO (08:14)
[2023-03-06 08:22] VITALS: RESP 18; O2SAT 95
--- NOTE | 2023-03-06 08:51 | P.PNAN_ITS ---
Anes - Prog Note Post-Op Date/Time: 03/06/23 08:51 Cardiovascular status: normal Respiratory status: normal Airway patency: baseline Mental status: baseline Post-Op hydration status: normal Vital Signs: Last Vital Signs Temp 36.5 C 03/06/23 05:10 Pulse 73 03/06/23 05:10 Resp 18 03/06/23 08:22 BP 112/66 03/06/23 05:10 Pulse Ox 95 03/06/23 08:22 O2 Del Method Room Air 03/06/23 08:22 O2 Flow Rate 2 03/05/23 12:53 Pain Score (VAS): 410 I/O: Intake & Output 03/05/23 03/06/23 03/06/23 23:59 07:59 15:59 Intake Total 490 640 Output Total 300 300 Balance 490 340 -300 Laboratory Tests 03/06/23 05:24 03/06/23 05:24 03/06/23 05:24 WBC 13.5 H RBC 4.03 L Hgb 11.5 L Hct 36.4 L MCV 90.3 MCH 28.5 MCHC 31.6 L RDW 13.6 Plt Count 258 MPV 10.0 Immature Gran % (Auto) 0.4 Neut % (Auto) 65.1 Lymph % (Auto) 25.9 [place] % (Auto) 8.1 Eos % (Auto) 0.1 Baso % (Auto) 0.4 Lymph # (Auto) 3.49 H [place] # (Auto) 1.1 H Eos # (Auto) 0.0 Baso # (Auto) 0.1 Abs Immat Gran (auto) 0.06 H Absolute Neuts (auto) 8.8 H Absolute Nucleated RBC 0.0 Nucleated RBC % 0.0 Sodium 140 Potassium 3.3 L Chloride 105 Carbon Dioxide 27 Anion Gap 8 BUN 7 D Creatinine 0.60 L Estim Creat Clear Calc 76 Estimated GFR > 60 Glucose 90 Calcium 9.0 Magnesium 2.0 Post-procedural complaints: none Patient Feedback: Patient satisfied with anesthetic care.
--- NOTE | 2023-03-06 09:23 | PM.IMPN ---
Progress Note: A&P Assessment and Plan (1) Arthritis of right knee: Code(s): M17.11 - Unilateral primary osteoarthritis, right knee Status: Acute Assessment and Plan: Postoperative day 1 status post right total knee arthroplasty. Wound care, pain control, and DVT prophylaxis deferred to Dr. Jerome. Check baseline labs in a.m. (2) Hypertension: Code(s): I10 - Essential (primary) hypertension Status: Acute Assessment and Plan: Blood pressures were reviewed and they have been stable postoperatively. Resume felodipine 10 mg daily and continue to monitor closely. Plan Thank you for allowing us to participate in this patient's care. Please do not hesitate to contact us with any questions. Subjective Date/time seen: 03/06/23 09:23 Interval history: patient doing well minimal pain. Cleared per hospitalist team to discharge. Exam Narrative: GENERAL: Comfortable, no acute distress HENMT: moist mucous membranes EYES: EOM intact b/l RESPIRATORY: clear to auscultation CARDIO: RRR GI: soft, nontender, bowel sounds present EXTREMITIES: Right knee Tegaderm intact and dry Objective Data Vital Signs Vital Signs: Vital Signs - 24 hr 03/05/23 11:43 03/05/23 11:45 03/05/23 12:00 Temperature 97.9 F Pulse Rate 88 100 97 Respiratory Rate 14 12 16 Blood Pressure 112/67 123/72 109/67 Pulse Oximetry 98 94 96 Oxygen Delivery Simple Face Mask Room Air Nasal Cannula Oxygen Flow Rate 10 2 03/05/23 12:15 03/05/23 12:30 03/05/23 12:45 Temperature Pulse Rate 85 93 82 Respiratory Rate 17 13 12 Blood Pressure 129/63 129/74 129/73 Pulse Oximetry 95 97 99 Oxygen Delivery Nasal Cannula Nasal Cannula Nasal Cannula Oxygen Flow Rate 2 2 2 03/05/23 12:53 03/05/23 13:13 03/05/23 13:05 Temperature 98.7 F Pulse Rate 93 93 91 Respiratory Rate 12 14 18 Blood Pressure 130/80 125/69 Pulse Oximetry 99 99 97 Oxygen Delivery Nasal Cannula Room Air Oxygen Flow Rate 2 03/05/23 13:25 03/05/23 13:55 03/05/23 14:33 Temperature 98.8 F 97.8 F Pulse Rate 87 75 Respiratory Rate 17 16 Blood Pressure 124/67 126/66 Pulse Oximetry 96 100 Oxygen Delivery Room Air Oxygen Flow Rate 03/05/23 15:04 03/05/23 18:02 03/05/23 19:34 Temperature 99.2 F 97.5 F L 97.9 F Pulse Rate 82 79 90 Respiratory Rate 16 18 20 Blood Pressure 125/61 119/58 L 134/77 Pulse Oximetry 100 99 100 Oxygen Delivery Oxygen Flow Rate 03/06/23 00:51 03/06/23 05:10 03/06/23 08:22 Temperature 98.5 F 97.7 F Pulse Rate 82 73 Respiratory Rate 20 18 18 Blood Pressure 105/54 L 112/66 Pulse Oximetry 98 95 95 Oxygen Delivery Room Air Oxygen Flow Rate Intake/Output Intake/Output: Intake & Output 03/03/23 03/04/23 03/05/23 03/06/23 23:59 23:59 23:59 23:59 Intake Total 1140 640 Output Total 200 600 Balance 940 40 Meds/Results Medications: Active Medications Generic Name Dose Route Start Last Admin Trade Name Freq PRN Reason Stop Dose Admin Acetaminophen 650 mg 03/05/23 17:00 03/06/23 08:06 Acetaminophen 325 Mg Tablet PO 650 mg Q4HR CHENCHO Administration Apixaban 2.5 mg 03/06/23 09:00 03/06/23 08:06 Apixaban 2.5 Mg Tablet PO 2.5 mg Q12HR CHENCHO Administration Cefdinir 300 mg 03/06/23 09:00 03/06/23 08:05 Cefdinir 300 Mg Capsule PO 300 mg Q12HR CHENCHO Administration Celecoxib 200 mg 03/06/23 08:00 03/06/23 08:14 Celecoxib 200 Mg Capsule PO 200 mg DAILY@0800 CHENCHO Administration Felodipine 10 mg 03/06/23 09:00 03/06/23 08:05 Felodipine 5 Mg Tab Cr PO 10 mg QAM CHENCHO Administration Morphine Sulfate 2 mg 03/05/23 12:54 Morphine Sulfate (*Crx) 2 Mg/Ml Inj IV PUSH Q1H PRN Pain Rated 7-10 Oxycodone HCl 5 mg 03/05/23 14:00 03/06/23 05:11 Oxycodone Hcl (*Crx) 5 Mg Tab Ir PO 5 mg Q4H CHENCHO Administration Oxycodone HCl 5 mg 03/05/23 12:54 Oxycodone Hcl (*Crx) 5 Mg Tab Ir PO
== END 2023-03-06 10:20 | disposition home or self-care (01) ==
LOC: ANHSURGERY 06:15 → ANH2MED 12:59
PROVIDERS: PCP Internal Medicine; Visit Provider Orthopaedic Surgery
PROC: (CPT 27447; principal; 2023-03-05 07:30)
DX: M17.11 Unilateral primary osteoarthritis, right knee (principal); I10 Essential (primary) hypertension; E78.5 Hyperlipidemia, unspecified
CPT/HCPCS: 27447; 36415; 73560; 80048; 80307; 82040; 83036; 83735; 85025; 86850; 86900; 86901; 87081; 93005; 97110; 97116; 97161; 97165; 97530; 97535; A9270; C1713; C1776; J0171; J0690; J1100; J1170; J1200; J1885; J2250; J2270; J2371; J2405; J2704; J2795; J3010; J3370; J7030; J7120

== ENCOUNTER 2024-10-06 05:47 | Day surgery (SDC) | payer MEDICARE, SELFPAY ==
[2024-01-23 09:44] VITALS: BMI 27.1
[2024-09-18 12:56] VITALS: BMI 27.1
[2024-10-06 06:09] VITALS: BP 140/89; PULSE 77; RESP 16; TEMP 36.6; O2SAT 100
[2024-10-06] MEDS: LACTATED RINGERS 1,000 ML 150 ML IV CONT (06:23)
--- NOTE | 2024-10-06 07:07 | WPDANESEPPF ---
Anes - Initial Pre Proc Eval Procedure: Operation Date: 10/06/24 07:30 Proposed Procedures p Screening Colonoscopy - Vikas Lucas MD Date/Time: 10/06/24 07:07 Surgeon: Vikas Lucas MD Pre Op Diagnosis: Screening Neoplasm of Colon Patient Data Age: 69 Gender: F Height: 1.57 m Weight: 69.15 kg Last Vital Signs Temp 97.8 F 10/06/24 06:09 Pulse 77 10/06/24 06:09 Resp 16 10/06/24 06:09 BP 140/89 10/06/24 06:09 Pulse Ox 100 10/06/24 06:09 O2 Del Method Room Air 10/06/24 06:09 Allergies Allergy/AdvReac Type Severity Reaction Status Date / Time penicillin G (From Bicillin Allergy Severe Unconscious Verified 10/06/24 06:08 L-A) Home Medications ?Medication ?Instructions ?Recorded ?Confirmed ?Type multivitamin 1 tablet PO DAILY 12/21/21 10/06/24 History cod liver oil 1 cap PO DAILY 02/13/23 10/06/24 History soy isoflavone-black cohosh 1 cap PO DAILY 02/13/23 10/06/24 History root-magnolia bark 155 mg capsule (Estroven) felodipine 10 mg tablet,extended 10 mg PO DAILY 09/18/24 10/06/24 History release 24 hr Patient hx anesthesia problems: none Family hx anesthesia problems: none Results Review: All pre-operative results and documents have been reviewed as part of the pre-operative evaluation. [facility] Past Medical History Medical History Hyperlipidemia Osteoarthritis Hypertension Surgical History Surgical History History of excision of epidermal inclusion cyst (12/01/20) Right axilla. History of arthroplasty of right knee (03/05/23) History of hysterectomy Family History Family History Father Family history of lung cancer Patient's father is Mother Patient's mother is Unknown Hypertension Social History Social History (Updated 03/19/24 @ 10:49 by Jessica Contreras CMA) Social History: Surrogate medical decision maker: Guy Prather, spouse. Code status: Full code. Smoking status: Never smoker Second hand tobacco smoke exposure: No Alcohol intake: current Drinks per week: 1 Substance use: never Substance use type: does not use Current Housing: Decline to Answer Concerned About Future Housing: Decline to Answer Difficulty Paying Gas/Electric Bills: Decline to Answer Difficulty Paying for Meds: Decline to Answer Currently Unemployed: Decline to Answer Education: Decline to Answer Difficulty w/ Childcare or Family Care: Decline to Answer Living arrangements: with family Spiritual care concerns: No Anes - Eval Final PreProcedure Day of Procedure 10/06/24 07:07 Heart: regular rate and rhythm Lungs: clear to auscultation Airway: Mallampati scale class II Last oral intake: >/= 8 hours ASA classification: II Anesthetic plan: proceed Anesthesia type and monitoring: monitored anesthesia care Results Review: All pre-operative results and documents have been reviewed as part of the pre-operative evaluation. Informed Consent: The patient's anesthetic plan and its attendant risks and benefits were discussed with the patient/family/POA. Questions were solicited and answers provided to the satisfaction of the patient/family/POA.
--- NOTE | 2024-10-06 07:35 | PM.IMHP ---
H&P: HPI History of Present Illness Date/Time: 10/06/24 07:35 Chief Complaint: Screening colonoscopy Narrative: This is the patient's 2nd colonoscopy. There are no GI symptoms and there is no family history of colorectal cancer. Review of Systems Review of Systems: All systems reviewed & are unremarkable except as noted in HPI and below PMFSH Past Medical History Medical History Hyperlipidemia Osteoarthritis Hypertension Surgical History Surgical History History of excision of epidermal inclusion cyst (12/01/20) Right axilla. History of arthroplasty of right knee (03/05/23) History of hysterectomy Family History Family History Father Family history of lung cancer Patient's father is Mother Patient's mother is Unknown Hypertension Social History Social History (Updated 03/19/24 @ 10:49 by Jessica Contreras [facility]) Social History: Surrogate medical decision maker: Guy Binghamwell, spouse. Code status: Full code. Smoking status: Never smoker Second hand tobacco smoke exposure: No Alcohol intake: current Drinks per week: 1 Substance use: never Substance use type: does not use Current Housing: Decline to Answer Concerned About Future Housing: Decline to Answer Difficulty Paying Gas/Electric Bills: Decline to Answer Difficulty Paying for Meds: Decline to Answer Currently Unemployed: Decline to Answer Education: Decline to Answer Difficulty w/ Childcare or Family Care: Decline to Answer Living arrangements: with family Spiritual care concerns: No Meds Home Medications and Allergies Home Medications ?Medication ?Instructions ?Recorded ?Confirmed ?Type multivitamin 1 tablet PO DAILY 12/21/21 10/06/24 History cod liver oil 1 cap PO DAILY 02/13/23 10/06/24 History soy isoflavone-black cohosh 1 cap PO DAILY 02/13/23 10/06/24 History root-magnolia bark 155 mg capsule (Estroven) felodipine 10 mg tablet,extended 10 mg PO DAILY 09/18/24 10/06/24 History release 24 hr Allergies Allergy/AdvReac Type Severity Reaction Status Date / Time penicillin G (From Bicillin Allergy Severe Unconscious Verified 10/06/24 06:08 L-A) Vital Signs Vital Signs - 24 hr 10/06/24 06:09 Temperature 97.8 F Pulse Rate 77 Respiratory Rate 16 Blood Pressure 140/89 Pulse Oximetry 100 Oxygen Delivery Room Air Exam Const: General: cooperative and healthy appearing Resp: Effort & Inspection: normal respiratory effort and able to speak in complete sentences Auscultation: clear to auscultation bilaterally Cardio: Rate: regular rate Rhythm: regular rhythm GI: Inspection: normal to inspection GI Palp: No No hepatosplenomegaly present Auscultation: normal bowel sounds Rectal Exam: deferred Skin: General skin exam: normal color Psych: Appearance: grossly normal Mental Status: mental status grossly normal Assessment and Plan Assessment and plan (1) Encounter for screening colonoscopy: Code(s): Z12.11 - Encounter for screening for malignant neoplasm of colon Status: Acute Assessment and Plan: The patient is deemed a good candidate for the procedure. Consent signed. Will proceed.
--- NOTE | 2024-10-06 07:54 | WPDANESPN ---
Anes - Prog Note Post-Op Date/Time: 10/06/24 07:54 Vital Signs: Last Vital Signs Temp 97.8 F 10/06/24 06:09 Pulse 77 10/06/24 06:09 Resp 16 10/06/24 06:09 BP 140/89 10/06/24 06:09 Pulse Ox 100 10/06/24 06:09 O2 Del Method Room Air 10/06/24 06:09 Pain Score (VAS): no Patient Feedback: Patient satisfied with anesthetic care.
[2024-10-06 08:01] VITALS: BP 119/70; PULSE 87; RESP 16; O2SAT 100
[2024-10-06 08:11] VITALS: BP 113/74; PULSE 76; RESP 16; O2SAT 100
[2024-10-06 08:21] VITALS: BP 114/65; PULSE 63; RESP 16; O2SAT 100
== END 2024-10-06 08:23 | disposition home or self-care (01) ==
PROVIDERS: PCP Internal Medicine; Visit Provider Internal Medicine Gastroenterology
PROC: 0DJD8ZZ Inspection of Lower Intestinal Tract, Via Natural or Artificial Opening Endoscopic (ICD-10-PCS; CPT 45378; principal; 2024-10-06 07:30)
DX: Z12.11 Encounter for screening for malignant neoplasm of colon (principal)
CPT/HCPCS: G0121